=== PATIENT | male | born 1975 | race Caucasian/White ===

== ENCOUNTER 2017-02-05 20:55 | Emergency (ER) | payer SELFPAY ==
[~2017-02-05] VITALS: Ht 177.8 cm; Wt 90.9 kg
[2017-02-05 21:08] VITALS: BP 139/95; PULSE 94; O2SAT 100
[2017-02-05 21:48] LABS: BASOPHILS % (AUTO) 0.5 % (0-3); EOSINOPHILS % (AUTO) 1.9 % (0-5); MONOCYTES % (AUTO) 7.4 % (4-12); Mean Corpuscular Hemoglobin 31.7 pg (27.0-35.0); Mean Corpuscular Volume 93.1 fL (81-100); NEUTROPHILS % (AUTO) 68.6 % (40-74); Platelet Count 375 bil/L (150-400)
--- NOTE | 2017-02-05 21:54 | ED.REPORT ---
HPI- Male Date of Service Feb 05, 2017 ED Provider: Scotty Ca MD Pt is a 41 year old male presenting to the ED complaining of 10/10 bilateral testicular pain onset 4 days ago, much worse today. Associated symptoms include urinary hesitancy. Denies hematuria or hx of kidney stones. Pt takes Suboxone for chronic back pain. Denies nausea, vomiting, diarrhea, SOB, wheezing, fever or chills. Nursing Notes Stated Complaint: GROIN PAIN Chief Complaint: Male Abdominal Pain Nursing Notes Reviewed: Yes Allergies: Coded Allergies: No Known Allergies (Unverified , 02/05/17) Scheduled PRN Buprenorphine/Naloxone 8-2 mg (Buprenorphine/Naloxone 8-2 mg) 1 Each Tab.subl 1- 2 TABLET SL DAILY PRN PRN For Pain General Time Seen by MD: 21:53 Chief Complaint Testicle painful right, Testicle painful left Hx Obtained From: Patient Arrived By: Walk-in Onset Occurred: 4 days ago Symptom Duration: Since onset Location: : Testicle left: Testicle right Quality: Painful Severity: Current: Pain level 10 out of 10 Severity: Maximum: Severe Recent Healthcare: No recent doctor visit, No recent hospitalization Similar Sx Previous: No Past Medical History Past Medical History Takes suboxone for chronic back pain Past Surgical History vasectomy 15 years ago Smoking History Unknown if Ever Smoker Ambulatory Status Independent Review of Systems Review of Systems Note: Reports urinary hesitancy Constitutional: Denies: Chills, Fever GI: Denies: Diarrhea, Nausea, Vomiting Male: Reports Testicular pain, Denies Hematuria Complete sys rev & neg: except as marked. Respiratory: Denies: Shortness of breath, Wheezing Physical Exam Initial Vital Signs Vital Signs (First) Date Time Temp Pulse Resp B/P Pulse Ox O2 Delivery O2 Flow Rate FiO2 02/05/17 21:08 36.3 94 139/95 100 Room Air 02/06/17 00:10 18 Initial VS: Reviewed, Vital signs abnormal General/Constitutional: Well-developed, Well-nourished Head / Eyes: Atraumatic, Normocephalic, PERRL ENT: Mucous membranes moist, Conjunctiva normal, No scleral icterus Neck: Supple, Non-tender, Full range of motion Respiratory: No respiratory distress Abdomen / GI: No distention Extremities: Vascular intact, Neuro intact, No swelling, No tenderness Skin: Warm, Dry, No cyanosis Neurologic: Alert, Oriented, Nonfocal Psychiatric: Mood/affect normal, Behavior normal, Normal thought content Male Genitourinary: Atraumatic Swollen and tender epididymis Interpretation & Diagnostics Interpretation & Diagnostics: US SCROTUM: CONCLUSION: No acute abnormality identified. This report was transmitted to the [facility] room at 02/05/2017 - 11:25:07 PM PDT. Lab Results Interpretation Result Diagram: 02/05/17 21302/05/17 213 Test 02/05/17 21:35 02/06/17 00:20 White Blood Count 9.2th/mm3 (3.8-10.1) Red Blood Count 4.51mil/mm3 (4.40-5.80) Hemoglobin 14.3g/dL (13.8-17.2) Hematocrit 42.0% (41.0-50.0) Mean Corpuscular Volume 93.1fL (81-100) Mean Corpuscular Hemoglobin 31.7pg (27.0-35.0) Mean Corpuscular Hemoglobin Concent 34.0% (32.0-37.0) Red Cell Distribution Width 13.4% (12.3-15.4) Platelet Count 375bil/L (150-400) Neutrophils (%) (Auto) 68.6% (40-74) Lymphocytes (%) (Auto) 21.4% (14-46) Monocytes (%) (Auto) 7.4% (4-12) Eosinophils (%) (Auto) 1.9% (0-5) Basophils (%) (Auto) 0.5% (0-3) Sodium Level 134mEq/L (134-144) Potassium Level 5.1mEq/L (3.5-5.2) Chloride Level 97mEq/L (97-108) Carbon Dioxide Level 23mmol/L (18-29) Blood Urea Nitrogen 19mg/dL (6-24) Creatinine 0.74mg/dL (0.76-1.27) Estimat Glomerular Filtration Rate 125mL/min (>59) Glucose Level 95mg/dL (60-99) Calcium Level 9.5mg/dL (8.5-10.1) Magnesium Level 2.1mg/dL (1.6-2.6) Total Bilirubin 0.2mg/dL (0.0-1.2) Aspartate Amino Transf (AST/SGOT) 32U/L (0-50) Alanine Aminotransferase (ALT/SGPT) 48U/L (0-44) Alkaline Phosphatase 79U/L (25-150) Total Protein 7.5g/dL (6.4-8.4) Albumin 4.4g/dL (3.4-5.0) Lipase 18U/L (13-60) Urine Color Yellow (YELLOW) Urine Appearance Slightly cloudy Urine pH 6.5 (5.0-8.0) Urine Specific [place] 1.021 (1.003-1.035) Urine Protein Negativemg/dL (NEG,TRACE) Urine Glucose (UA) Negativemg/dL (NEGATIVE) Urine Ketones Negativemg/dL (NEGATIVE) Urine Occult Blood Negative (NEGATIVE) Urine Nitrite Negative (NEGATIVE) Urine Bilirubin Negative (NEGATIVE) Urine Urobilinogen Normalmg/dL (NORMAL) Urine Leukocyte Esterase Negative (NEGATIVE) Urine RBC 0-2/hpf (0-2) Urine WBC 6-10/hpf (0-5) Urine Epithelial Cells Occasional/hpf (NONE-MOD) Urine Crystals None seen (NONE SEEN) Urine Bacteria Many/hpf (NONE-FEW) Urine Hyaline Casts None/lpf (NONE) Urine Granular Casts None seen (NONE SEEN) Urine Waxy Casts None seen (NONE SEEN) Urine Red Blood Cell Casts None seen (NONE SEEN) Urine White Blood Cell Casts None seen (NONE SEEN) Urine Mucus Present (None Seen) Urine Trichomonas None seen (NONE SEEN) Urine Yeast None (NONE SEEN) Urinalysis Comment None Urine Culture Reflexed Indicated Lab values outside NL range: no clinical significance. Lab Results Interpretation: GEN probe pending, 6-10 WBC per hpf Re-Eval/Medical Decision Med Decision/Clinical Course 41-year-old male with bilateral testicular pain worse on the left. The epididymis appears to be inflamed clinically. Ultrasound was obtained. The heat treatment technician originally reported hyperemic epididymis on the left greater than right but this was not reflected in the final report. I think clinically that the patient does have epididymitis and will treat accordingly. A Gen-Probe is pending. Re-Evaluation/Progress : Time of Eval: 23:52 Patient Status: Condition improved Re-Evaluation/Progress Note: Discussed US results and plan for discharge. Pt requested pain management with suboxone. Pt understands and agrees with plan for discharge. Counseled Regarding: Diagnosis, Lab results, Need for follow-up, When/why to return to ED Discharge & Departure Impression: Primary Impression: Epididymitis Disposition: Home Discharge Condition All VS Reviewed: Yes Condition: Improved Patient Instructions: Epididymitis (ED) Additional Instructions: You received azithromycin and Rocephin, complete antibiotic treatment for the epididymitis. Ibuprofen 400-600 mg 3 or 4 times daily, to be purchased over-the -counter. Suboxone 8/2 tabs, one or 2 daily as needed for pain, #20 dispensed. Referrals: NOPCP (PCP) Scribe Attestation Portions of this note were transcribed by Errol Ruano. I, Dr. Ca personally performed the history, physical exam and medical decision-making; I reviewed and confirmed the accuracy of the information in the transcribed note. Signed by: Theodora Matos, 02/05/2017. Scotty Ca MD Feb 05, 2017 21:54 ERROL RUANO Feb 05, 2017 22:01
[2017-02-05 22:22] LABS: Magnesium 2.1 mg/dL (1.6-2.6)
[2017-02-05] MEDS ORDERED: cefTRIAXone Inj 250 MG, Lidocaine PF 1% Inj 0.9 ML in Syringe 1 EACH IM ONE (23:25)
[2017-02-05] MEDS ORDERED: cefTRIAXone 1,000 mg Inj IM ONE ×2 (23:40→23:55)
[2017-02-06] MEDS ORDERED: BUPR1TAB36 SL (00:09)
[2017-02-06 00:10] VITALS: BP 135/79; PULSE 88; RESP 18; O2SAT 100
[2017-02-06 00:15] VITALS: BP 135/79; PULSE 88; RESP 18; O2SAT 100
[2017-02-06 01:00] LABS: APPEARANCE,URINE SLIGHTLY CLOUDY (CLEAR,HAZY); COLOR,URINE YELLOW (YELLOW); OCCULT BLOOD,URINE NEGATIVE (NEGATIVE); PH,URINE 6.5 (5.0-8.0); UROBILINOGEN,URINE NORMAL (NORMAL)
--- NOTE | 2017-02-06 12:16 | DRSVH ---
PROCEDURE: US TESTICULAR SONOGRAM WITH DOPPLER INDICATIONS: testicular pain TECHNIQUE: Real-time scanning was performed of the scrotum and testicles, with image documentation. Color and p ulse Doppler interrogation was performed of both testicles. COMPARISON: None. FINDINGS: Right: Testicle is normal in size at 4.2 x 4.1 x 2.4 cm, and homogenous in echotexture. Epididymis is normal in overall size and morphology. No hydrocele or varicoceles. Overlying scrotal skin is no rmal in thickness. Left: Testicle is normal in size at 4.4 x 3.4 x 2.2 cm, and homogeneous in echotexture. Epididymis is normal in overall size and morphology. Mild increased vascularity identified color flow Doppler. No hydrocele or varicoceles. Overlying scrotal skin is normal in thickness. Doppler: Color and pulse Doppler demonstrate normal and symmetric arterial flow in both testicles. IMPRESSION: 1. Multiple left testicular microcalcifications; otherwise the testicles are normal. If there is no history of underlying malignancy or predisposing factors which would increase the patient's risk for development of neoplasm, recommend patient education on self-examination otherwise no followup ultras ound is necessary. 2. Mild increased vascularity involving the left epididymis possibly related to early epididymitis. P lease correlate clinically. Dictated by: Taz PENA Interpreted: Fawn Oviedo MD on 02/06/2017 at 8:51 Approved by: Fawn Oviedo M.D. on 02/06/2017 at 12:14
== END 2017-02-06 00:16 | disposition home or self-care (01) ==
LOC: SED 20:55
DX: N45.1 Epididymitis (principal)
CPT/HCPCS: 36415; 76870; 80053; 81000; 83690; 83735; 85025; 87086; 87088; 87186; 87491; 87591; 93975; 96372; 99284; J0696; J1885

== ENCOUNTER 2017-02-09 20:47 | Emergency (ER) | payer SELFPAY ==
[~2017-02-09] VITALS: Ht 175.3 cm; Wt 86.4 kg
[~2017-02-09 20:47] MED LIST: BUPR1TAB36 SL
[2017-02-09 21:06] VITALS: BP 130/77; PULSE 92; RESP 20; O2SAT 98
--- NOTE | 2017-02-09 21:23 | ED.REPORT ---
HPI-General Illness Date of Service Feb 09, 2017 ED Provider: Dr. Perez Pt is a 41 year old male with a hx of chronic back pain presenting to the ED complaining of a sharp pains in his head onset a few days ago. He states that he gets "electric shocks in his brain" and they hit him really hard. When he moves his eyes side to side he feels shocks in his head, he also complains of sensitivity to sounds. 2 nights ago, he was unable to walk due to the pain. He denies any LOC, recent injury or hx of seizures or migraines. Denies vision changes, fever, chills, nausea, vomiting, or neck stiffness. Nursing Notes Stated Complaint: SHARP SHOCK FEELING IN BRAIN, NUMB HANDS, SYNCOPAL Chief Complaint: General Complaint Nursing Notes Reviewed: Yes Allergies: Coded Allergies: No Known Allergies (Unverified , 02/05/17) Scheduled PRN Buprenorphine/Naloxone 8-2 mg (Buprenorphine/Naloxone 8-2 mg) 1 Each Tab.subl 1- 2 TABLET SL DAILY PRN PRN For Pain Rizatriptan ODT (Rizatriptan) 10 Mg Tablet 10 MG PO ONCE PRN PRN migraine General Time Seen by MD: 21:23 Chief Complaint Headache Hx Obtained From: Patient Arrived By: Walk-in Onset Occurred: 3 days ago Symptom Duration: Since onset Location: : Head Quality: Painful Severity: Current: Severe Severity: Maximum: Severe Recent Healthcare: No recent hospitalization, Recent doctor visit Similar Sx Previous: No Past Medical History Past Medical History Takes suboxone for chronic back pain Past Surgical History vasectomy 15 years ago Smoking History Unknown if Ever Smoker Ambulatory Status Independent Review of Systems Full Review of Systems Constitutional: Denies: Chills, Fever GI: Denies: Nausea, Vomiting Musculoskeletal: Denies: Neck pain Neurologic: Reports: Headache, Denies: Change LOC, Vision change Complete sys rev & neg: except as marked. Physical Exam Vital Signs Vital Signs Date Time Temp Pulse Resp B/P Pulse Ox O2 Delivery O2 Flow Rate FiO2 02/09/17 23:45 36.8 85 18 129/68 98 Room Air 02/09/17 22:13 36.8 81 17 122/75 98 Room Air 02/09/17 21:06 37. 92 20 130/77 98 Room Air Initial VS: Reviewed General/Constitutional: Well-developed, Well-nourished ENT: Mucous membranes moist, Conjunctiva normal, No scleral icterus Neck: Supple, Non-tender, Full range of motion Respiratory: Breath sounds normal, Clear to auscultation, No respiratory distress Cardiovascular: Regular rate & rhythm, Heart sounds normal, Intact distal pulses Abdomen / GI: Soft, Non-tender, No guarding, No rebound, No distention Extremities: Vascular intact, Neuro intact, No swelling, No tenderness Skin: Warm, Dry, No cyanosis Psychiatric: Mood/affect normal, Behavior normal, Normal thought content Head / Eyes: Normocephalic, PERRL, EOMI, No nystagmus, Conjunctiva NL Photophobic. Eye movements are hesitant due to discomfort. No conjunctival injection. Neurologic: Oriented X3, Speech NL, No motor deficits, No sensory deficits, CN II - XII intact, Reflexes equal bilat, Cerebellar NL, Memory NL Interpretation & Diagnostics Lab Results Interpretation Result Diagram: 02/09/17212902/09/172129 Test 02/09/17 21:30 02/10/17 00:54 White Blood Count 9.8th/mm3 (3.8-10.1) Red Blood Count 4.40mil/mm3 (4.40-5.80) Hemoglobin 14.1g/dL (13.8-17.2) Hematocrit 41.6% (41.0-50.0) Mean Corpuscular Volume 94.5fL (81-100) Mean Corpuscular Hemoglobin 32.0pg (27.0-35.0) Mean Corpuscular Hemoglobin Concent 33.9% (32.0-37.0) Red Cell Distribution Width 13.6% (12.3-15.4) Platelet Count 363bil/L (150-400) Neutrophils (%) (Auto) 68.4% (40-74) Lymphocytes (%) (Auto) 19.6% (14-46) Monocytes (%) (Auto) 8.4% (4-12) Eosinophils (%) (Auto) 3.0% (0-5) Basophils (%) (Auto) 0.5% (0-3) Erythrocyte Sedimentation Rate 9mm/hr (0-15) Sodium Level 142mEq/L (134-144) Potassium Level 4.7mEq/L (3.5-5.2) Chloride Level 106mEq/L (97-108) Carbon Dioxide Level 23mmol/L (18-29) Blood Urea Nitrogen 18mg/dL (6-24) Creatinine 0.75mg/dL (0.76-1.27) Estimat Glomerular Filtration Rate 123mL/min (>59) Glucose Level 102mg/dL (60-99) Calcium Level 9.2mg/dL (8.5-10.1) C-Reactive Protein 0.1mg/dL (0.0-0.5) CSF Appearance Clear (CLEAR) CSF Color Colorless (COLORLESS) CSF WBC 1/mm3 (0-5) CSF RBC 2/mm3 CSF Mononuclear WBCs % CSF Polynuclear WBCs % CSF Other Cells CSF Glucose 80mg/dL (45-90) CSF Total Protein 34mg/dL (15-45) CT Head Interpretation IMPRESSION: No acute intracranial abnormality. Dictated by: Fawn Oviedo M.D. on 02/09/2017 at 21:54 Study: Head CT no contrast Interpretation / Wet Read by: Interpret - Radiologist Procedures Lumbar Puncture Text / Dict Note: CSF pressure initially at 36. After samples were obtained pressure was 22. Time: 00:38 Procedure Performed by: ED physician Consent / Setup / Site Prep: Consent from patient, Time-out performed, Hand hygiene observed, Stand sterile technique, Sterile drapes applied, Patient left lateral Skin Preparation Agent: Betadine Local Anesthesia: Lidocaine 1% Procedural Sedation/Analgesia: Sedation: Ketamine Inserted Needle at: L4 L5 Post-Procedure / Complications: Antibiotic oint applied, Dressing applied, No complications, Tolerated procedure well, Patient stable Proced Mod Sedation/Analgesia Time: 00:37 Procedure Performed by: ED physician Sedation Time: 10 - 15 min Consent / Setup: Consent from patient, Time-out performed, Hand hygiene observed, Stand sterile technique, Position supine Indication: Other (Lumbar puncture) Preparation: awake overnight monitor applied, Pulse oximeter applied, Constant attendance, IV access established, Eval last meal time, Supplemental oxygen, Procedure explained, Suction available, End tidal CO2 mon applied VS Prior to Procedure: All vital signs normal Airway Exam: Normal facial anatomy CVS/Resp Exam: Normal breath sounds Neuro Exam: Alert Sedation: Sedation: Ketamine (70) Response During Procedure: Handled secretions adeq, Maintained airway well, Oxygenation stable, Sedation appropriate, Vital signs stable Complications During/After: None Reversal: None required Mental Status After Procedure: Alert, Oriented X3 Post-Procedure: Alert prior to discharge Attestation: I performed procedure, I performed sedation Re-Eval/Medical Decision Med Decision/Clinical Course 41-year-old with somewhat bizarre symptoms including "electric shocks" with eye movement. CT is negative. LP had fairly high initial CSF pressures while he was uncomfortable and exhibiting Valsalva maneuver while vocalizing. Closing pressure was normal. The CSF itself was entirely benign. He is much improved after migraine cocktail. Suspect this is migrainous, particularly given the positive nature of the neurological phenomenon, as distinguished from absence or loss phenomena. This is not appear to be a seizure related event. There is not appear to be any identifiable neurologic abnormality otherwise. Provided with rizatriptan for home use. Zofran and Compazine additionally for nausea and headache. Follow up with PCP. Time of Eval: 23:07 Patient Status: Condition improved Re-Evaluation/Progress Note: Informed of CT results. Discussed plan for LP. Pt understands and agrees. Time of Eval: 00:33 Patient Status: Condition improved Re-Evaluation/Progress Note: Discussed plan for procedural sedation during LP. Benefits and risks of LP thoroughly explained. Performed LP. Pt tolerated procedure well. Time of Eval: 01:18 Patient Status: Condition improved Re-Evaluation/Progress Note: Pt awake and alert. Time of Eval: 01:48 Patient Status: Condition improved Re-Evaluation/Progress Note: Discussed CSF results. Time of Eval: 02:31 Patient Status: Condition improved Re-Evaluation/Progress Note: Discussed plan for discharge. Pt understands and agrees. Counseled Regarding: Diagnosis, Lab results, Need for follow-up, When/why to return to ED Discharge & Departure Primary Impression: Migraine Migraine type: unspecified Status migrainosus presence: without status migrainosus Intractability: intractable Qualified Code: G43.919 - Migraine, unspecified, intractable, without status migrainosus Disposition: Home Discharge Condition All VS Reviewed: Yes Condition: Improved Patient Instructions: Migraine Headache (ED) Additional Instructions: This is an unusual set of symptoms, but overall, it seems most consistent with migraine. Your spinal tap was normal. I believe that the elevated pressure was due to you bearing down and vocalizing during the spinal tap. Once you settled down, the pressure returned to normal. The cell counts and chemistries were entirely normal. Culture is pending but anticipated to be negative. Your CAT scan was likewise negative. It is possible that your recent infection and antibiotic exposure precipitated this series of events. If you do not have recurrences and things return to normal, no further evaluation is required. Follow up in any case with your doctor in the office. If you continue to have strange episodes of this sort, additional evaluation can be undertaken. You may try [id number] dissolved under the tongue at the onset of similar symptoms. Return any time for new symptoms of concern. Referrals: NOPCP (PCP) Theodora Attestation Portions of this note were transcribed by Kary Hernandez. I, Dr. Perez personally performed the history, physical exam and medical decision-making; I reviewed and confirmed the accuracy of the information in the transcribed note. Signed by: Theodora Matos, 02/09/2017. Nikita Perez MD Feb 09, 2017 21:23 KARY HERNANDEZ Feb 09, 2017 21:31
[2017-02-09] MEDS ORDERED: 0.9% Sodium Chloride 1,000 ML IV ONE (21:29)
[2017-02-09] MEDS ORDERED: Ketorolac 15 mg/mL Inj IVPUSH ONE (21:30)
[2017-02-09] MEDS ORDERED: Dexamethasone 10 mg/mL Inj IVPUSH ONE (21:30)
[2017-02-09] MEDS ORDERED: Haloperidol 5 mg/mL Inj IVPUSH ONE (21:30)
[2017-02-09 21:57] LABS: BASOPHILS % (AUTO) 0.5 % (0-3); MONOCYTES % (AUTO) 8.4 % (4-12); Mean Corpuscular Volume 94.5 fL (81-100); NEUTROPHILS % (AUTO) 68.4 % (40-74); Platelet Count 363 bil/L (150-400)
--- NOTE | 2017-02-09 21:57 | DRSVH ---
PROCEDURE: CT BRAIN WITHOUT CONTRAST ([id number]) INDICATIONS: electric pains behind eyes TECHNIQUE: Noncontrast 4.5 mm thick angled axial sections acquired from the foramen magnum to the vertex, with c oronal reformats. COMPARISON: None. FINDINGS: Image quality: Excellent. CSF spaces: Basal cisterns are patent. No extra-axial fluid collections. Ventricles are normal in size and shape. Brain: No midline shift. No intracranial masses or hemorrhage. Soriano-white matter interface is norm al. Skull and face: Calvarium and visualized facial bones are intact, without suspicious lesions. Sinuses: Visualized sinuses and mastoids are clear. IMPRESSION: No acute intracranial abnormality. Dictated by: Fawn Ovieod M.D. on 02/09/2017 at 21:54 Approved by: Fawn Oviedo M.D. on 02/09/2017 at 21:56
[2017-02-09 22:13] VITALS: BP_SYST 122; BP_SYST 133; BP_DIAS 71; BP_DIAS 75; PULSE 81; PULSE 88; RESP 17; RESP 21; O2SAT 98
[2017-02-09 22:24] LABS: ERYTHROCYTE SEDIMENTATION RATE 9 mm/hr (0-15)
[2017-02-09 23:45] VITALS: BP 129/68; PULSE 85; RESP 18; O2SAT 98
[2017-02-10] MEDS ORDERED: Ketamine 10 mg/mL 20 mL Inj IV ONE ×2 (00:30→01:40)
[2017-02-10 01:25] LABS: APPEARANCE,CSF CLEAR (CLEAR); COLOR,CSF COLORLESS (COLORLESS); WHITE BLOOD CELL,CSF 0 /mm3 (0-5)
[2017-02-10 01:33] LABS: APPEARANCE,CSF CLEAR (CLEAR); COLOR,CSF COLORLESS (COLORLESS); WHITE BLOOD CELL,CSF 1 /mm3 (0-5)
[2017-02-10] MEDS ORDERED: RIZA10TA28 PO (02:27)
== END 2017-02-10 02:38 | disposition home or self-care (01) ==
LOC: SED 20:47
DX: G43.919 Migraine, unspecified, intractable, without status migrainosus (principal)
CPT/HCPCS: 36415; 62270; 70450; 80048; 82945; 84155; 85025; 85651; 86140; 87070; 87205; 89051; 96361; 96374; 96375; 99152; 99285; J1100; J1200; J1630; J1885; J2250; J7030